=== PATIENT | male | born 1950 | race African-American/Black ===

== ENCOUNTER 2016-12-06 12:16 | Observation (INO) ==
[2016-12-06] MEDS ORDERED: ONDANSETRON 4 MG/2 ML VIAL IV PRN (12:59)
[2016-12-06] MEDS ORDERED: ASPIRIN 325 MG TABLET PO STA (12:59)
[2016-12-06] MEDS ORDERED: NITROGLYCERIN SL 0.4 MG TABLET SL PRN (12:59)
[2016-12-06] MEDS ORDERED: ENOXAPARIN 100 MG/ML SYRINGE SUBCUT STA (12:59)
[2016-12-06] MEDS ORDERED: MORPHINE 2 MG/1 ML SYRINGE IV PRN (12:59)
[2016-12-06] MEDS ORDERED: NITROGLYCERIN 2% OINT 1 INCH/GM PACK TOP STA (12:59)
[2016-12-06] MEDS ORDERED: hydrALAZINE 20 MG/1 ML VIAL IV STA (13:05)
--- NOTE | 2016-12-06 13:06 | Emergency Department Note ---
Jeovanny Maradiaga Hilary, am scribing for, and in the presence of, Tex Clemente MD 13: 03. Chyna Maradiaga James D, MD, personally performed the services described in this documentation, ascribed by Dotty Up in my presence, and it is both accurate and complete . Arrival - Arrival Chief Complaint: Chest Pain Stated Complaint: chest pain,some swelling,shaking,sob,VA sent over ED Nursing Triage Note: pt ambulatory to triage with c/o chest pain/sob. pt states he is having right sided chest pain with some sob onset today around 0400. pt states he was sent here from [place] [facility]. Mode of Arrival: Ambulatory Limitations: No Limitations Source: Patient, RN Notes Reviewed - History of Present Illness HPI Narrative: Pt is a 66 y/o black male presenting to the ED with c/o chest pain which onset around 0600 this morning. He confirms chest pain that radiates to his jaw, SOB, sweating then chills. His chest pain is now resolved and no other complaints or problems stated in the ED. Onset (ago): hour(s) Consistency: now resolved Severity: mild Severity scale (1-10): 1 Quality: sharp Allergies/Adverse Reactions: Allergies Allergy/AdvReac Type Severity Reaction Status Date / Time lisinopril Allergy ANAPHYLAXIS Verified 12/06/16 12:34 Home Medications: Home Medications Medication Instructions Recorded Confirmed Type Aspirin EC Tab 81 mg PO QAM 12/06/16 12/06/16 History Atenolol 25 mg PO QAM 12/06/16 12/06/16 History Meloxicam 7.5 mg PO QAM 12/06/16 12/06/16 History Omeprazole 20 mg PO QAM 12/06/16 12/06/16 History Potassium Chloride Cap/Tab [K Dur] 20 meq PO BEDTIME 12/06/16 12/06/16 History hydroCHLOROthiazide 25 mg PO QAM 12/06/16 12/06/16 History [Hydrochlorothiazide] Review of System - Review of System 12 point system: reviewed and no additional remarkable complaints except as stated - Review of System Constitutional: Present: chills, diaphoresis, fever Cardiovascular: Present: chest pain (radiating to his jaw) Medical,Surgical,& Family Hx - Social History Smoking Status: Never smoker Frequency of Alcohol Use: None Type of Drug Use: None Exam Physical Examination: GENERAL: This is a well-nourished, well-developed in no apparent distress. VITAL SIGNS: Temperature: 99 Pulse: 69 Respiratory: 17 Blood Pressure: 173/ 105 O2Sat: 96 HEENT: Head is normocephalic and atraumatic. Pupils are equally round and reactive to light. Extraocular movement are intact. Oropharynx is benign with moist mucous membranes. NECK: Neck is soft and supple without tenderness. There are no masses. There is no lymphadenopathy. LUNGS: Lungs are clear to auscultation bilaterally. Chest rises symmetrically. There is no chest wall tenderness. CV: Heart is regular rate and rhythm without murmurs, rubs, or gallops. ABDOMEN: Abdomen is soft, non-tender to palpation. There are no abnormal masses palpated. There is no organomegaly. Bowel sounds are present and active. SKIN: Skin is warm and dry. No rash. EXTREMITIES: Patient has full range of motion without tenderness. There is no pedal edema. NEUROLOGIC: Awake, alert, and oriented x4. Cranial nerves II through XII are grossly intact. There are no motorsensory deficits. PSYCHIATRIC: Normal affect. Normal mood. Vital Signs: Vital Signs Temperature 99.0 F 12/06/16 12:28 Pulse Rate 69 12/06/16 12:28 Respiratory Rate 18 12/06/16 12:28 Blood Pressure 173/105 12/06/16 12:28 O2 Sat by Pulse Oximetry 96 12/06/16 12:28 Course - Consultations Consultation #1: Discussed with hospitalist. Patient will be admitted to their service. Time: 13:05 Results - Labs CBC & BMP: 12/06/16 12:59 12/06/16 12:59 Lab Results: I have reviewed the patients labs Labs: Laboratory Tests 12/06/16 12/06/16 12/06/16 12:59 12:59 12:59 WBC 10.3 RBC 5.88 H Hgb 16.5 Hct 48.7 MCV 82.8 L Plt Count 215 Neut % (Auto) 80.6 H Lymph % (Auto) 10.8 L Neut # (Auto) 8.3 H Lymph # (Auto) 1.1 L INR 1.0 PT Patient/Control Mix 10.7 Circ Anticoag PTT 29.9 Sodium 139 Potassium 3.9 Chloride 102 Carbon Dioxide 30 BUN 11 Creatinine 1.20 Glucose 110 H Total Protein 7.1 Albumin/Globulin Ratio 1.0 L Lipase 68.0 L Urine pH Ur Specific [place] Urine Urobilinogen Urine RBC Urine WBC Urine Opiates Screen Ur Barbiturates Screen Ur Phencyclidine Scrn U Amphetamine/Methamph U Benzodiazepines Scrn U Cocaine Metab Screen U Cannabinoids Screen 12/06/16 12/06/16 13:21 13:21 WBC RBC Hgb Hct MCV Plt Count Neut % (Auto) Lymph % (Auto) Neut # (Auto) Lymph # (Auto) INR PT Patient/Control Mix Circ Anticoag PTT Sodium Potassium Chloride Carbon Dioxide BUN Creatinine Glucose Total Protein Albumin/Globulin Ratio Lipase Urine pH 7.0 Ur Specific [place] 1.009 Urine Urobilinogen < 2.0 H Urine RBC 1 Urine WBC <1 Urine Opiates Screen Negative Ur Barbiturates Screen Negative Ur Phencyclidine Scrn Negative U Amphetamine/Methamph Negative U Benzodiazepines Scrn Negative U Cocaine Metab Screen Negative U Cannabinoids Screen Negative Laboratory Tests 12/06/16 12:59 Troponin I < 0.015 - EKG EKG results: interpreted by ERMD - Impressions EKG: Normal sinus rhythm with a rate of 62, nonspecific ST-T wave changes, short QT. Normal axis. - Diagnostic Findings Procedure: Chest x-ray: image reviewed by me (There is an irregular opacity projecting over right midlung measuring up to 2.8cm. Recommend chest CT for further evaluation) Disposition Clinical Impression: Chest pain, Essential hypertension Case discussed with: patient, patient's family Disposition: Disch To Home/Self Care Condition: Stable
[2016-12-06] MEDS ORDERED: ONDANSETRON 4 MG/2 ML VIAL ONE (13:10)
[2016-12-06] MEDS ORDERED: MORPHINE 2 MG/1 ML SYRINGE ONE (13:10)
[2016-12-06 13:12] LABS: Basophils % 0.3 % (0.0-0.8); Eosinophils # 0.1 10*3/uL (0.0-0.87); Eosinophils % 1.2 % (0.00-10.9); Hematocrit 48.7 VOL% (42.0-52.0); Hemoglobin 16.5 GM/DL (14.0-18.0); Immature Granulocytes % 0.2 %; Immature Granulocytes Absolute 0.02 #; Lymphocytes # 1.1 10*3/uL (1.4-4.0); Lymphocytes % 10.8 % (21.2-54.2); Mean Corpuscular HGB Conc 33.9 GM/DL (32-36); Mean Corpuscular Hemoglobin 28 PG (27-34); Mean Corpuscular Volume 82.8 FL (87-102); Mean Platelet Volume 10.6 FL (9.6-12.0); Monocytes # 0.7 10*3/uL (0.11-0.8); Monocytes % 6.9 % (1.7-12.7); Neutrophils # 8.3 10*3/uL (1.4-7.4); Neutrophils % 80.6 % (38.7-73.9); Platelet Count 215 T/CUMM (130-400); Red Blood Count 5.88 MC/CUMM (3.8-5.5); White Blood Count 10.3 T/CUMM (4-12)
[2016-12-06] MEDS ORDERED: hydrALAZINE 20 MG/1 ML VIAL ONE (13:13)
[2016-12-06] MEDS ORDERED: ENOXAPARIN 80 MG/0.8 ML SYRINGE SUBCUT ONE (13:13)
[2016-12-06] MEDS ORDERED: ASPIRIN 325 MG TABLET ONE (13:13)
[2016-12-06] MEDS ORDERED: NITROGLYCERIN 2% OINT 1 INCH/GM PACK TOP ONE (13:13)
[2016-12-06 13:22] LABS: PT Patient Result 10.7 SECS; Partial Thromboplastin Time 29.9 SECS (0-40)
[2016-12-06 13:27] LABS: Apearance,Urine CLEAR (Clear); Bilirubin,Urine Negative (Negative); Blood, Urine Negative (Negative); Glucose,Urine (UA) Negative (Negative); Ketones,Urine Negative (Negative); Mucus,Urine Occasional /LPF (Occasional); Nitrite,Urine Negative (Negative); Protein,Urine Negative; RBC,Urine 1 /HPF (0-4); Urine Color Straw (Yellow); Urine Specific Gravity 1.009 (1.001-1.035); Urine Urobilinogen < 2.0 EU/DL (0.2-1.0); WBC,Urine <1 /HPF (0-6)
[2016-12-06 13:32] LABS: Albumin 3.6 G/DL (3.4-5.0); Bilirubin,Total 0.6 MG/DL (0.2-1.0); Calcium 9.1 MG/DL (8.5-10.1); Osmolality,Calculated 276.5 MOS/KG (273-304); Potassium 3.9 MMOL/L (3.5-5.1); Total Protein 7.1 G/DL (6.4-8.3)
[2016-12-06 13:35] LABS: Barbiturates Screen,Urine Negative (Negative); Benzodiazepines Screen,Urine Negative (Negative); Cannabinoid Screen,Urine Negative (Negative); Opiate Screen,Urine Negative (Negative); Phencyclidine Screen,Urine Negative (Negative)
--- NOTE | 2016-12-06 14:22 | XRay Report ---
XR chest 2V Indication: Chest pain Comparison: Chest x-ray dated November 14, 2016 Technique: Frontal and lateral views of the chest. Findings: The cardiomediastinal silhouette is stable in configuration. Chronic change of the lungs. There is an irregular opacity projecting over right midlung measuring up to 2.[address] for further evaluation. Visualized osseous and surrounding soft tissue structures appear grossly unchanged. IMPRESSION: There is an irregular opacity projecting over right midlung measuring up to 2.[address] for further evaluation. Critical Results: Initiated by Palak at time of dictation. PROCEDURE INTERPRETED AT [facility] [place] DEPARTMENT OF RADIOLOGY Final Report Signed by: Dr Zhou Granda
--- NOTE | 2016-12-06 15:17 | Hospitalist History & Physical ---
<Samuel Steven - Last Filed: 12/06/16 15:18> Assessment and Plan (1) Chest pain Status: Acute Assessment and plan: Admit to telemetry. Cardiac monitoring. Serial enzymes and ekgs. Repeat ekg in am. Nitro prn for chest pain. Consult cardiology to follow. CXR results showed an irregular opacity projecting over right midlung measuring up to 2.[address] pending. Current Visit: Yes (2) Essential hypertension Status: Acute Assessment and plan: Resume home medications. Current Visit: Yes (3) Gout Status: Chronic Assessment and plan: Pt. currently on meloxicam. Current Visit: Yes History of Present Illness Chief complaint: chest pain History of present illness: Mr. Funez is a 66 year old black male with a history of hypertension, asthma, and gout that presents to the ED today with complaints of chest pain and shortness of breath. Pt. has asthma and states he has been wheezing on and off since Sunday. Pt. states that today it has worsened and he began to have pain. Pt. states that the pain started in his face (jaw area) and then he began to have a headache which then evolved into chest tightness. Pt's is present at the bedside and states that jaw pain is not new and has been going on intermittently for the last 2 weeks. Pt. states that the chest pain was on the right side of his chest and was sharp. Pt. took a baby asa, atenolol and meloxicam with no relief. Pt. also reports becoming nauseous with no vomiting but dry heaving. Pt. denies any right or left sided weakness, vision loss, confusion, abdominal pain or any other associating symptoms. On evaluation in the ED, pt's chest pain has now resolved. He denies any other complaints at this time. Pt denies any family history of heart disease. Pt. is a former smoker but describes himself as fairly active. Pt. will be admitted to the hospitalist service for observation. Home Medications Medication Instructions Recorded Confirmed Type Aspirin EC Tab 81 mg PO QAM 12/06/16 12/06/16 History Atenolol 25 mg PO QAM 12/06/16 12/06/16 History Meloxicam 7.5 mg PO QAM 12/06/16 12/06/16 History Omeprazole 20 mg PO QAM 12/06/16 12/06/16 History Potassium Chloride Cap/Tab [K Dur] 20 meq PO BEDTIME 12/06/16 12/06/16 History hydroCHLOROthiazide 25 mg PO QAM 12/06/16 12/06/16 History [Hydrochlorothiazide] Allergies Allergy/AdvReac Type Severity Reaction Status Date / Time lisinopril Allergy ANAPHYLAXIS Verified 12/06/16 12:34 Medical,Surgical,& Family Hx - Family History Family History: Reports;: Family Cancer (father) - Social History Smoking Status: Never smoker Frequency of Alcohol Use: None Type of Drug Use: None Marital Status: Lives With:: Spouse Functional capacity: independent ambulation - Constitutional Constitutional: Absent: chills, fever(s) - EENT Eyes: Present: loss of vision, requires corrective lense. Absent: blurry vision Ears: Present: decreased hearing. Absent: ear discharge Nose, mouth and throat: Present: headache(s). Absent: dysphagia, hoarseness - Cardiovascular Cardiovascular: Present: chest pain at rest, chest pain with activity, dyspnea on exertion, radiating jaw, neck or arm pain (facial radiation). Absent: edema - Respiratory Respiratory: Present: wheezing. Absent: cough - Gastrointestinal Gastrointestinal: Present: nausea. Absent: abdominal pain, vomiting (only dry heaving) - Genitourinary Genitourinary: Absent: difficulty urinating, urinary frequency - Musculoskeletal Musculoskeletal: Absent: back pain - Neurological Neurological: Present: headache(s). Absent: confusion, dizziness - Psychiatric Psychiatric: Absent: anxiety, depression Exam - Constitutional Vitals: Period Temp Pulse Resp BP Sys/Hopkins Pulse Ox Last 24 Hr 99.0 F-99.0 F 66-69 17-18 173-173/105-105 96 General appearance: normal weight, no acute distress - Head Head exam: Present: normal inspection, normocephalic - Eye Eye exam: Present: EOMI. Absent: periorbital swelling Pupils: Present: QUINTIN. Absent: fixed - ENT ENT exam: Present: normal exam - Neck Neck exam: Absent: thyromegaly - Respiratory Respiratory exam: Present: wheezes (slight). Absent: clear to auscultation bilaterally - Cardiovascular Cardiovascular exam: Present: regular rate and rhythm - GI/Abdominal GI/Abdominal exam: Present: normal bowel sounds, soft. Absent: tenderness - Extremities Exam Extremities exam: Present: normal capillary refill, full ROM. Absent: edema - Neurological Exam Neurological exam: Present: alert, oriented X3, normal gait - Psychiatric Psychiatric exam: Present: normal affect, normal mood - Skin Skin exam: Present: normal color, warm, dry Results - Labs CBC & BMP: 12/06/16 12:59 12/06/16 12:59 Lab Results: I have reviewed the past 24 hour labs <Gabriela Hi - Last Filed: 12/06/16 17:50> History of Present Illness Chief complaint: chest pain x 1 day History of present illness: PCP is Dr. Stu Kirk at the [facility] Mr. Funez is a 66 year old male with a history of GERD, hypertension, dyslipidemia and asthma who presented to the hospital with 2 days of nasal congestion and cough and developed chest pain today. Patient reports 2 days ago he has. Some hay out over his yard and soon thereafter started having nasal congestion and described a tightness in his chest rated 5 out of 10 with a pressure sensation over the right side of his chest that started after a coughing fit. He denies any radiation. He denies any jaw pain. He reports that he has some pressure next to his nose and his right upper cheek and states that the chest tightness was associated with shortness of breath and nausea. He denies any runny nose. He denies any abdominal pain. His last bowel movement was yesterday. He denies any melena or bright red blood per rectum. He described his symptoms to his and she was concerned so she decided to bring him to the emergency department for further evaluation and treatment. A 10 point review of systems was reviewed with the patient and was otherwise unremarkable. Past medical history: As noted above plus osteoarthritis Past surgical history: Right total knee replacement, left hernia operation Meds: Reviewed Allergies: RYAN inhibitors cause anaphylaxis Family history: Father had lung cancer; mother had a stroke Social history: Patient smoked a pack per week for 35 years remotely. He denies any alcohol or illicit drug use. He is . 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 Extraocular muscles are intact. Sclerae clear. Conjunctive are pink. Nares are patent with no discharge or epistaxis no but he has an obvious deformity to his right paranasal space and it is tender to palpation with tenderness over the right maxillary sinus. Oropharynx is clear. No lesions or thrush noted. Neck is supple. No lymphadenopathy or thyromegaly appreciated. No JVD. Cardiovascular: Regular rate and rhythm. Normal S1-S2. No obvious murmurs rubs or gallops Lungs: Clear to auscultation bilaterally with good aeration nonlabored breathing noted Abdomen: Soft nontender nondistended positive bowel sounds no organomegaly or masses appreciated Extremity exam: Patient is warm and well-perfused. No clubbing cyanosis or edema Labs and investigative studies were reviewed Assessment and plan: #1 Atypical chest pain likely due to acute bronchitis though patient does have a risk factors for ACS -start bronchodilators as needed. Repeat a FEDE panel and monitor on telemetry. Check TSH. cardiology has been consulted. Await recommendations #2 Suspect acute sinusitis -start decongestants and agree with Augmentin. Will hold Zyrtec for now #3 GERD -Continue PPI #4 essential hypertension -Resume home meds #5 Dyslipidemia -Continue statin #6 Remote history of tobacco use -Recommend continued smoking cessation Discussed with nurse and patient. All questions answered. I suspect if cardiac markers are negative will likely be able to discharge in the a.m. Exam - Constitutional Vitals: Period Temp Pulse Resp BP Sys/Hopkins Pulse Ox Last 24 Hr 98.4 F-99.0 F 55-71 14-21 127-173/76-122 96-100 Results - Labs CBC & BMP: 12/06/16 12:59 12/06/16 12:59
--- NOTE | 2016-12-06 15:21 | CT Report ---
CT chest w con Indication: Mass. CT CHEST WITH CONTRAST DLP: 254 mGy*cm. One or more of the following dose reduction techniques was used: Automated exposure control, adjustment of the mA and/or kV according the patient size, or use of iterative reconstruction techniques. Comparison: None Technique: Axial CT images of the chest were obtained after the IV administration of Omnipaque 350, 100 cc. Findings: Shotty subcentimeter mediastinal lymph nodes are present along the paratracheal region. None are pathologically enlarged. No hilar or axillary lymphadenopathy. Heart size is normal. Aortic arch is slightly elongated but no significant atheromatous disease is shown. Main pulmonary artery is normal in size. Airways widely patent. The dependent lungs, there is some atelectasis and/or scarring present. However, no pulmonary mass or nodularity is identified. Pleural spaces are clear. 2 calcified right hilar nodes are present, neither enlarged. No destructive bone lesions. Limited views of the upper abdomen appear grossly unremarkable. Impression: 1. No pulmonary mass identified. Basilar dependent atelectasis is present. 2. No pathologic lymphadenopathy. Prior granulomatous disease. PROCEDURE INTERPRETED AT [facility] DEPARTMENT OF RADIOLOGY Final Report Signed by: Les More M.D.
--- NOTE | 2016-12-06 17:14 | Cardiology Consult Note ---
Assessment and Plan - Time spent with patient Time spent with patient: Less than 30 minutes History of Present Illness - Data of Consult Patient: new to practice Consult date: 12/06/16 Requesting Physician: Gabriela Hi Primary care physician: Josie Samano - Consult Narrative Reason for consult: Chest pain History of present illness: Mr. 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 The patient states about 1 month ago he had similar symptoms where he was having significant amount of cough and then was seen by Dr. Josie Samano at the [place] [facility] and given a Zithromax and he got better for just a few days. He now presents with same complaints but has chest pain that hurts anytime he coughs. The patient has a history of asthma as well. He states that his pain occurs as sharp anytime he takes a deep breath and coughs. If he does not cough he does not have pain he has not had any exertional chest pain. He is also experienced some pain in the right maxillary area. He has had some postnasal drip he denies fevers chills or significant sputum production. Patient had an EKG in the emergency room and first set of cardiac biomarkers are negative his EKG shows no acute changes he is admitted to the hospital service and I have been asked to see. He has no identifiable risk factors for coronary artery disease no family history he has had some hypertension and hyperlipidemia in the past he has not been a smoker he does not have diabetes. Due to inadequacies of the electronic health record I am unable to complete my note because someone else is in the computer. Therefore my assessment and plan are as below: 1. Noncardiac chest pain this appears to be musculoskeletal in etiology related to coughing from asthmatic bronchitis 2. Asthmatic bronchitis 3. Right maxillary sinus discomfort possible sinusitis 4. Hypertension controlled 5. Dyslipidemia Recommendations check lipids and treat to goal continue aspirin. Unless biomarkers or EKG change no further cardiovascular workup at this time. CC: Gabriela Hi MD - Home Medications and Allergies Home Medications: Home Medications Medication Instructions Recorded Confirmed Type Aspirin EC Tab 81 mg PO QAM 12/06/16 12/06/16 History Atenolol 25 mg PO QAM 12/06/16 12/06/16 History Meloxicam 7.5 mg PO QAM 12/06/16 12/06/16 History Omeprazole 20 mg PO QAM 12/06/16 12/06/16 History Potassium Chloride Cap/Tab [K Dur] 20 meq PO BEDTIME 12/06/16 12/06/16 History hydroCHLOROthiazide 25 mg PO QAM 12/06/16 12/06/16 History [Hydrochlorothiazide] Allergies/Adverse Reactions: Allergies Allergy/AdvReac Type Severity Reaction Status Date / Time lisinopril Allergy ANAPHYLAXIS Verified 12/06/16 12:34 - Constitutional Constitutional: Present: fatigue, headache(s). Absent: anorexia, chills, fever( s) - EENT Eyes: Absent: blurry vision, diplopia Ears: Absent: decreased hearing, ear discharge Nose, mouth and throat: Present: headache(s), hoarseness, sinus pressure (Or pain in the right maxillary region). Absent: epistaxis - Cardiovascular Cardiovascular: Present: chest pain at rest (Chest pain is related directly to coughing not related to exertion or orthopnea.), dyspnea. Absent: claudication , diaphoresis, edema, radiating jaw, neck or arm pain, lightheadedness - Respiratory Respiratory: Present: cough, dyspnea on exertion. Absent: wheezing, snoring, pain on inspiration, change in phlegm color - Gastrointestinal Gastrointestinal: Absent: abdominal pain, bloating, change in bowel habits, dyspepsia, dysphagia, fecal incontinence, heartburn, melena - Genitourinary Genitourinary: Absent: difficulty urinating, hematuria - Musculoskeletal Musculoskeletal: Absent: arthralgias - Neurological Neurological: Absent: abnormal gait, abnormal speech, disequilibrium - Psychiatric Psychiatric: Absent: anxiety, auditory hallucinations, depression - Endocrine Endocrine: Absent: cold intolerance, heat intolerance - Hematologic/Lymphatic Hematologic/Lymphatic: Absent: easy bleeding, easy bruising Medical,Surgical,& Family Hx - Medical History Cardio: History of: Hypertension Endocrine: History of: Dyslipidemia Gastrointestinal: History of: GERD - Surgical History Additional Surgical History: Minor right lower extremity surgery unclear procedure - Family History Family History: Reports;: Family Cancer (father) - Social History Smoking Status: Never smoker Frequency of Alcohol Use: None Type of Drug Use: None Marital Status: Lives With:: Spouse Functional capacity: independent ambulation Physical Examination Vital Signs Temp Pulse Resp BP Pulse Ox 99.0 F 69 17 173/105 96 12/06/16 12:28 12/06/16 12:28 12/06/16 12:28 12/06/16 12:28 12/06/16 12:28 General: Present: Appears Well ([place] body weight) HEENT: Present: PERRL, Normocephaly, Sinus Tenderness. Absent: Jaundice, Pallor Neck: Present: Supple Neck, Midline Trachea, No JVD/HJR Cardiac: Present: Reg Rate and Rhythm, S1/S2, No Murmur. Absent: S3, S4 Lungs: Present: Clear Ascult./Percussion Neuro: Present: Cranial Nerve 2-12 Intact Abdomen: Present: Soft, Active Bowel Sounds Skin: Present: Clear Musculoskeletal: Absent: Erythematous Joints, Decreased Range of Motion, Fluid Collection, Pain in Joint Gait: Present: Normal Gait Extremities: Present: Normal Gait. Absent: Edema Result/EKG - Labs CBC & BMP: 12/06/16 12:59 12/06/16 12:59 Labs: Laboratory Results - last 24 hr 12/06/16 12/06/16 12/06/16 12:59 12:59 12:59 WBC RBC Hgb Hct MCV MCH MCHC RDW Plt Count MPV Neut % (Auto) Lymph % (Auto) [place] % (Auto) Eos % (Auto) Baso % (Auto) Neut # (Auto) Lymph # (Auto) [place] # (Auto) Eos # (Auto) Baso # (Auto) Immature Gran % Nucleated RBC % Immature Gran # Nucleated RBCs # INR 1.0 PT Patient/Control Mix 10.7 Circ Anticoag PTT 29.9 Sodium 139 Potassium 3.9 Chloride 102 Carbon Dioxide 30 Anion Gap 10.9 BUN 11 Creatinine 1.20 GFR Calculation 79 BUN/Creatinine Ratio 9.00 Glucose 110 H Calculated Osmolality 276.5 Calcium 9.1 Total Bilirubin 0.60 AST 16 ALT 26 Alkaline Phosphatase 67 Troponin I < 0.015 Total Protein 7.1 Albumin 3.6 Globulin 3.5 Albumin/Globulin Ratio 1.0 L Lipase 68.0 L Urine Color Urine Appearance Urine pH Ur Specific [place] Urine Protein Urine Glucose (UA) Urine Ketones Urine Blood Urine Nitrate Urine Bilirubin Urine Urobilinogen Urine Leukocytes Urine RBC Urine WBC Urine Mucus Ur Culture Indicated? Urine Opiates Screen Ur Barbiturates Screen Ur Phencyclidine Scrn U Amphetamine/Methamph U Benzodiazepines Scrn U Cocaine Metab Screen U Cannabinoids Screen 0612/06/16 12/06/16 12:59 13:21 13:21 WBC 10.3 RBC 5.88 H Hgb 16.5 Hct 48.7 MCV 82.8 L MCH 28 MCHC 33.9 RDW 14.0 Plt Count 215 MPV 10.6 Neut % (Auto) 80.6 H Lymph % (Auto) 10.8 L [place] % (Auto) 6.9 Eos % (Auto) 1.2 Baso % (Auto) 0.3 Neut # (Auto) 8.3 H Lymph # (Auto) 1.1 L [place] # (Auto) 0.7 Eos # (Auto) 0.1 Baso # (Auto) 0.0 Immature Gran % 0.2 Nucleated RBC % 0.0 Immature Gran # 0.02 Nucleated RBCs # 0.00 INR PT Patient/Control Mix Circ Anticoag PTT Sodium Potassium Chloride Carbon Dioxide Anion Gap BUN Creatinine GFR Calculation BUN/Creatinine Ratio Glucose Calculated Osmolality Calcium Total Bilirubin AST ALT Alkaline Phosphatase Troponin I Total Protein Albumin Globulin Albumin/Globulin Ratio Lipase Urine Color Straw Urine Appearance Clear Urine pH 7.0 Ur Specific [place] 1.009 Urine Protein Negative Urine Glucose (UA) Negative Urine Ketones Negative Urine Blood Negative Urine Nitrate Negative Urine Bilirubin Negative Urine Urobilinogen < 2.0 H Urine Leukocytes Negative Urine RBC 1 Urine WBC <1 Urine Mucus Occasional Ur Culture Indicated? Not indicated Urine Opiates Screen Negative Ur Barbiturates Screen Negative Ur Phencyclidine Scrn Negative U Amphetamine/Methamph Negative U Benzodiazepines Scrn Negative U Cocaine Metab Screen Negative U Cannabinoids Screen Negative - EKG EKG results: interpreted by me, WNL
--- NOTE | 2016-12-06 17:17 | Cardiology Consult Note ---
<Angelina Mayfield Randy - Last Filed: 12/06/16 16:56> Assessment and Plan - Time spent with patient Time spent with patient: Greater than 30 minutes (Due to assessment, plan, and documentation.) (1) Chest pain Status: Acute Current Visit: Yes (2) Sinusitis Status: Acute Current Visit: Yes (3) Essential hypertension Status: Acute Current Visit: Yes (4) Hyperlipidemia Status: Chronic Current Visit: Yes (5) Gout Status: Chronic Current Visit: Yes (6) GERD (gastroesophageal reflux disease) Status: Chronic Current Visit: Yes History of Present Illness - Data of Consult Patient: new to practice Consult date: 12/06/16 Requesting Physician: Samuel Steven - Consult Narrative Reason for consult: chest pain 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 Funez is a 66 year old male with history of hypertension , asthma, hyperlipidemia, gout, GERD. Risk factors are significant for: Age, hypertension, hyperlipidemia, sedentary lifestyle, former tobacco use. He reports his former smoker having quit over 35 years ago. He does not require the use of a cane or walker but does have limited mobility due to prior right knee surgery. 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 He has no family history of CAD. Mr. Funez presented to the emergency room today with right-sided facial pain, jaw pain, and chest discomfort. Mr. Funez reports last night the right side of his face started hurting and he developed a headache. This morning, he noted that he had the same symptoms with the addition of some chest tightness, shortness of breath, chills, and nausea. He also reports having a dry cough. He tells me that 2-3 weeks ago he had the same symptoms of facial pain and headache and went to [facility] and they gave him a Z-Ronnie for sinusitis. At that time, he improved but now he is having the same symptoms with the addition of chest tightness. He reports his chest discomfort is fairly mild and is nonreproducible. He reports that he does not have chest pain or shortness of breath with exertion. He also reports he feels like "his sinuses are draining. " Patient's initial troponin is negative. We will continue to cycle cardiac biomarkers and EKGs and follow trend. Initial EKG shows sinus rhythm with suggestion of ST-T abnormality although it is difficult to tell due to artifact. Assessment/plan: 1. Chest pain -patient describes some typical and mostly atypical features of chest pain. Will continue to cycle cardiac biomarkers and EKGs to rule out MA. I suspect this is more related to his coughing from asthmatic bronchitis. 2. Possible sinusitis -will obtain CT patient sinuses. We will go ahead and start him on oral antibiotics, Flonase, and Zyrtec. Temperature max is only been 99. White blood cell count is normal at 10.3 but he does have a little bit of a left shift. We will continue to monitor CBC and response to therapy. 3. Hypertension -blood pressure has been moderately elevated since admission although he has been in considerable pain with the right side of his face hurting. It is better controlled now. We will continue to monitor and adjust medications accordingly. 4. Hyperlipidemia -he is not currently taking medication for this will recheck lipid panel in the morning. 5. Gout -continue home medications. Denies any recent flareups of gout. 6. GERD -continue PPI during hospitalization. CC: Gabriela Hi MD - Home Medications and Allergies Home Medications: Home Medications Medication Instructions Recorded Confirmed Type Acetaminophen Tab [Tylenol Tab] 650 mg PO Q4H PRN tablet 12/06/16 Rx Amoxicillin/Clav Tab [Augmentin 875 mg PO BID tablet 12/06/16 Rx Tab] Aspirin EC Tab 81 mg PO QAM 12/06/16 12/06/16 History Atenolol 25 mg PO QAM 12/06/16 12/06/16 History Fluticasone 50 Mcg Nasal [place] 2 spray BOTH NARES DAILY spray 12/06/16 Rx [Flonase Nasal [place]] Meloxicam 7.5 mg PO QAM 12/06/16 12/06/16 History Nitroglycerin Sl Tab [Nitrostat] 0.4 mg SL Q5M PRN tablet 12/06/16 Rx Omeprazole 20 mg PO QAM 12/06/16 12/06/16 History Potassium Chloride Cap/Tab [K Dur] 20 meq PO BEDTIME 12/06/16 12/06/16 History Sodium Chloride 0.65% Nasal Sp 2 spray BOTH NARES QID bottle 12/06/16 Rx [Asotin Nasal [place]] hydroCHLOROthiazide 25 mg PO QAM 12/06/16 12/06/16 History [Hydrochlorothiazide] Allergies/Adverse Reactions: Allergies Allergy/AdvReac Type Severity Reaction Status Date / Time lisinopril Allergy ANAPHYLAXIS Verified 12/06/16 12:34 Review of systems: - Constitutional: Present: chills, headache(s), As per HPI. Absent: anorexia, daytime sleepiness, excessive sweating, fever(s), frequent falls, increased appetite, lethargy, malaise, night sweats, stops breathing during sleep, weakness, weight gain, weight loss, fatigue. - EENT Eyes: Present: As per HPI. Absent: blurry vision, diplopia, loss of vision Ears: Present: As per HPI. Absent: decreased hearing, ear discharge, ear pain Nose, mouth and throat: Present: sinus pressure, headache(s), As per HPI. Absent : dysphagia, epistaxis, hoarseness, lip swelling, nasal congestion, neck mass, neck pain, sore throat, throat swelling, tongue swelling, vertigo - Cardiovascular: Present: chest pain at rest, dyspnea, radiating jaw, neck or arm pain, as per HPI. Absent: chest pain with activity, dyspnea on exertion, edema, claudication, diaphoresis, lightheadedness, orthopnea, palpitations, PND - Respiratory: Present:dyspnea, cough, wheezing, as per HPI. Absent: dyspnea on exertion, hemoptysis, snoring, pain on inspiration - Gastrointestinal: Present: As per HPI. Absent: abdominal pain, bloating, change in bowel habits, constipation, diarrhea, heartburn, hematemesis, hematochezia, loose stools, melena, nausea, vomiting - Genitourinary: Present: As per HPI. Absent: difficulty urinating, dysuria, flank pain, hematuria, nocturia, urinary frequency, urinary incontinence - Musculoskeletal: Present: As per HPI. Absent: arthralgias, back pain, joint swelling, limited range of motion, muscle cramps, muscle weakness, myalgias - Neurological: Present: As per HPI. Absent: abnormal gait, abnormal speech, behavioral changes, confusion, convulsions, disequilibrium, dizziness, focal weakness, frequent falls, headache(s), memory loss, numbness, paresthesias, radicular pain, syncope, tremor(s) - Psychiatric: Present: As per HPI. Absent: anxiety, confusion, depression, panic attacks - Endocrine: Present: As per HPI. Absent: cold intolerance, fatigue, heat intolerance, polydipsia, polyphagia - Hematologic/Lymphatic: Present: As per HPI. Absent: easy bleeding, easy bruising, lymphadenopathy Medical,Surgical,& Family Hx - Medical History Cardio: History of: Hypertension No history of: CAD Endocrine: History of: Dyslipidemia Gastrointestinal: History of: GERD - Family History Family History: Reports;: Family Cancer (father) - Social History Smoking Status: Never smoker Frequency of Alcohol Use: None Type of Drug Use: None Physical Examination Vital Signs Temp Pulse Resp BP Pulse Ox 99.0 F 69 17 173/105 96 12/06/16 12:28 12/06/16 12:28 12/06/16 12:28 12/06/16 12:28 12/06/16 12:28 Other: General appearance: Pleasant and cooperative. Normal weight, no acute distress. - Head Head exam: Present: normal inspection, normocephalic, atraumatic, right maxillary pain and tenderness to palpation. Absent: hematoma, laceration - Eye Eye exam: Present: EOMI. Absent: conjunctival injection, nystagmus, periorbital swelling, scleral icterus, laceration to eyelids Pupils: Present: PERRL. Absent: constricted, dilated, fixed, irregular, unequal - ENT ENT exam: Present: normal exam, normal external ear exam - Neck Neck exam: Present: normal inspection. Absent: lymphadenopathy, meningismus, tenderness, thyromegaly - Respiratory Respiratory exam: Present: Few rales posteriorly, otherwise clear to auscultation bilaterally. Absent: accessory muscle use, chest wall tenderness - Cardiovascular Cardiovascular exam: Present: regular rate and rhythm. Absent: carotid bruit, gallop, JVD, rubs, murmur - GI/Abdominal GI/Abdominal exam: Present: normal bowel sounds, soft. Absent: distended, firm , guarding, hernia, mass, tenderness, rebound. - Extremities Exam Extremities exam: Present: normal inspection, normal capillary refill. Upper extremity pulses 2+. Lower extremity pulses 2+. Absent: calf tenderness, edema -Musculoskeletal Exam Musculoskeletal: Present: No Fluid Collection, No Pain, Normal Range of Motion - Back Exam Back exam: Present: normal inspection. Absent: muscle spasm, vertebral tenderness - Neurological Exam Neurological exam: Present: alert, oriented X3, grossly intact without resting or essential tremor - Psychiatric Psychiatric exam: Present: normal affect, normal mood - Skin Skin exam: Present: normal color, warm, dry, intact. Absent: cyanosis, diaphoretic, rash, urticaria Result/EKG - Labs CBC & BMP: 12/06/16 12:59 12/06/16 12:59 Lab Results: I have reviewed the past 24 hour labs Labs: Laboratory Results - last 24 hr 12/06/16 12/06/16 12/06/16 12:59 12:59 12:59 WBC RBC Hgb Hct MCV MCH MCHC RDW Plt Count MPV Neut % (Auto) Lymph % (Auto) [place] % (Auto) Eos % (Auto) Baso % (Auto) Neut # (Auto) Lymph # (Auto) [place] # (Auto) Eos # (Auto) Baso # (Auto) Immature Gran % Nucleated RBC % Immature Gran # Nucleated RBCs # INR 1.0 PT Patient/Control Mix 10.7 Circ Anticoag PTT 29.9 Sodium 139 Potassium 3.9 Chloride 102 Carbon Dioxide 30 Anion Gap 10.9 BUN 11 Creatinine 1.20 GFR Calculation 79 BUN/Creatinine Ratio 9.00 Glucose 110 H Calculated Osmolality 276.5 Calcium 9.1 Total Bilirubin 0.60 AST 16 ALT 26 Alkaline Phosphatase 67 Troponin I < 0.015 Total Protein 7.1 Albumin 3.6 Globulin 3.5 Albumin/Globulin Ratio 1.0 L Lipase 68.0 L Urine Color Urine Appearance Urine pH Ur Specific [place] Urine Protein Urine Glucose (UA) Urine Ketones Urine Blood Urine Nitrate Urine Bilirubin Urine Urobilinogen Urine Leukocytes Urine RBC Urine WBC Urine Mucus Ur Culture Indicated? Urine Opiates Screen Ur Barbiturates Screen Ur Phencyclidine Scrn U Amphetamine/Methamph U Benzodiazepines Scrn U Cocaine Metab Screen U Cannabinoids Screen 12/06/16 12/06/16 12/06/16 12:59 13:21 13:21 WBC 10.3 RBC 5.88 H Hgb 16.5 Hct 48.7 MCV 82.8 L MCH 28 MCHC 33.9 RDW 14.0 Plt Count 215 MPV 10.6 Neut % (Auto) 80.6 H Lymph % (Auto) 10.8 L [place] % (Auto) 6.9 Eos % (Auto) 1.2 Baso % (Auto) 0.3 Neut # (Auto) 8.3 H Lymph # (Auto) 1.1 L [place] # (Auto) 0.7 Eos # (Auto) 0.1 Baso # (Auto) 0.0 Immature Gran % 0.2 Nucleated RBC % 0.0 Immature Gran # 0.02 Nucleated RBCs # 0.00 INR PT Patient/Control Mix Circ Anticoag PTT Sodium Potassium Chloride Carbon Dioxide Anion Gap BUN Creatinine GFR Calculation BUN/Creatinine Ratio Glucose Calculated Osmolality Calcium Total Bilirubin AST ALT Alkaline Phosphatase Troponin I Total Protein Albumin Globulin Albumin/Globulin Ratio Lipase Urine Color Straw Urine Appearance Clear Urine pH 7.0 Ur Specific [place] 1.009 Urine Protein Negative Urine Glucose (UA) Negative Urine Ketones Negative Urine Blood Negative Urine Nitrate Negative Urine Bilirubin Negative Urine Urobilinogen < 2.0 H Urine Leukocytes Negative Urine RBC 1 Urine WBC <1 Urine Mucus Occasional Ur Culture Indicated? Not indicated Urine Opiates Screen Negative Ur Barbiturates Screen Negative Ur Phencyclidine Scrn Negative U Amphetamine/Methamph Negative U Benzodiazepines Scrn Negative U Cocaine Metab Screen Negative U Cannabinoids Screen Negative - EKG EKG results: interpreted by me, sinus rhythm <Meryl Tristan - Last Filed: 12/07/16 06:17> History of Present Illness - Consult Narrative History of present illness: Mr. Funez is a 66 year old male please see my consult note that corresponds roughly with the date and time that Anabella Angelina Mayfield NP at this note in. They are duplicates. CC: Gabriela Hi MD Physical Examination Vital Signs Temp Pulse Resp BP Pulse Ox 99.0 F 69 17 173/105 96 12/06/16 12:28 12/06/16 12:28 12/06/16 12:28 12/06/16 12:28 12/06/16 12:28 Result/EKG - Labs CBC & BMP: 12/07/16 04:02 12/07/16 04:02 Labs: Laboratory Results - last 24 hr 12/06/16 12/06/16 12/06/16 12:59 12:59 12:59 WBC RBC Hgb Hct MCV MCH MCHC RDW Plt Count MPV Neut % (Auto) Lymph % (Auto) [place] % (Auto) Eos % (Auto) Baso % (Auto) Neut # (Auto) Lymph # (Auto) [place] # (Auto) Eos # (Auto) Baso # (Auto) Immature Gran % Nucleated RBC % Immature Gran # Nucleated RBCs # INR 1.0 PT Patient/Control Mix 10.7 Circ Anticoag PTT 29.9 Sodium 139 Potassium 3.9 Chloride 102 Carbon Dioxide 30 Anion Gap 10.9 BUN 11 Creatinine 1.20 GFR Calculation 79 BUN/Creatinine Ratio 9.00 Glucose 110 H Hemoglobin A1c Calculated Osmolality 276.5 Calcium 9.1 Total Bilirubin 0.60 AST 16 ALT 26 Alkaline Phosphatase 67 Total Creatine Kinase CK-MB (CK-2) Troponin I < 0.015 Total Protein 7.1 Albumin 3.6 Globulin 3.5 Albumin/Globulin Ratio 1.0 L Triglycerides Cholesterol LDL Cholesterol VLDL Cholesterol HDL Cholesterol Heart Disease Risk Ratio Lipase 68.0 L Free T4 TSH 3rd Generation Urine Color Urine Appearance Urine pH Ur Specific [place] Urine Protein Urine Glucose (UA) Urine Ketones Urine Blood Urine Nitrate Urine Bilirubin Urine Urobilinogen Urine Leukocytes Urine RBC Urine WBC Urine Mucus Ur Culture Indicated? Urine Opiates Screen Ur Barbiturates Screen Ur Phencyclidine Scrn U Amphetamine/Methamph U Benzodiazepines Scrn U Cocaine Metab Screen U Cannabinoids Screen 12/06/16 12/06/16 12/06/16 12:59 13:21 13:21 WBC 10.3 RBC 5.88 H Hgb 16.5 Hct 48.7 MCV 82.8 L MCH 28 MCHC 33.9 RDW 14.0 Plt Count 215 MPV 10.6 Neut % (Auto) 80.6 H Lymph % (Auto) 10.8 L [place] % (Auto) 6.9 Eos % (Auto) 1.2 Baso % (Auto) 0.3 Neut # (Auto) 8.3 H Lymph # (Auto) 1.1 L [place] # (Auto) 0.7 Eos # (Auto) 0.1 Baso # (Auto) 0.0 Immature Gran % 0.2 Nucleated RBC % 0.0 Immature Gran # 0.02 Nucleated RBCs # 0.00 INR PT Patient/Control Mix Circ Anticoag PTT Sodium Potassium Chloride Carbon Dioxide Anion Gap BUN Creatinine GFR Calculation BUN/Creatinine Ratio Glucose Hemoglobin A1c Calculated Osmolality Calcium Total Bilirubin AST ALT Alkaline Phosphatase Total Creatine Kinase CK-MB (CK-2) Troponin I Total Protein Albumin Globulin Albumin/Globulin Ratio Triglycerides Cholesterol LDL Cholesterol VLDL Cholesterol HDL Cholesterol Heart Disease Risk Ratio Lipase Free T4 TSH 3rd Generation Urine Color Straw Urine Appearance Clear Urine pH 7.0 Ur Specific [place] 1.009 Urine Protein Negative Urine Glucose (UA) Negative Urine Ketones Negative Urine Blood Negative Urine Nitrate Negative Urine Bilirubin Negative Urine Urobilinogen < 2.0 H Urine Leukocytes Negative Urine RBC 1 Urine WBC <1 Urine Mucus Occasional Ur Culture Indicated? Not indicated Urine Opiates Screen Negative Ur Barbiturates Screen Negative Ur Phencyclidine Scrn Negative U Amphetamine/Methamph Negative U Benzodiazepines Scrn Negative U Cocaine Metab Screen Negative U Cannabinoids Screen Negative 12/06/16 12/06/16 12/07/16 16:44 22:06 04:02 WBC RBC Hgb Hct MCV MCH MCHC RDW Plt Count MPV Neut % (Auto) Lymph % (Auto) [place] % (Auto) Eos % (Auto) Baso % (Auto) Neut # (Auto) Lymph # (Auto) [place] # (Auto) Eos # (Auto) Baso # (Auto) Immature Gran % Nucleated RBC % Immature Gran # Nucleated RBCs # INR PT Patient/Control Mix Circ Anticoag PTT Sodium Potassium Chloride Carbon Dioxide Anion Gap BUN Creatinine GFR Calculation BUN/Creatinine Ratio Glucose Hemoglobin A1c Calculated Osmolality Calcium Total Bilirubin AST ALT Alkaline Phosphatase Total Creatine Kinase 72 49 D 43 CK-MB (CK-2) 1.4 < 1.0 < 1.0 Troponin I < 0.015 < 0.015 < 0.015 Total Protein Albumin Globulin Albumin/Globulin Ratio Triglycerides Cholesterol LDL Cholesterol VLDL Cholesterol HDL Cholesterol Heart Disease Risk Ratio Lipase Free T4 TSH 3rd Generation Urine Color Urine Appearance Urine pH Ur Specific [place] Urine Protein Urine Glucose (UA) Urine Ketones Urine Blood Urine Nitrate Urine Bilirubin Urine Urobilinogen Urine Leukocytes Urine RBC Urine WBC Urine Mucus Ur Culture Indicated? Urine Opiates Screen Ur Barbiturates Screen Ur Phencyclidine Scrn U Amphetamine/Methamph U Benzodiazepines Scrn U Cocaine Metab Screen U Cannabinoids Screen 12/07/16 12/07/16 12/07/16 04:02 04:02 04:02 WBC 7.4 RBC 5.64 H Hgb 15.6 Hct 46.9 MCV 83.2 L MCH 28 MCHC 33.3 RDW 14.1 Plt Count 211 MPV 10.4 Neut % (Auto) 68.3 Lymph % (Auto) 19.1 L [place] % (Auto) 9.9 Eos % (Auto) 2.0 Baso % (Auto) 0.4 Neut # (Auto) 5.0 Lymph # (Auto) 1.4 [place] # (Auto) 0.7 Eos # (Auto) 0.2 Baso # (Auto) 0.0 Immature Gran % 0.3 Nucleated RBC % 0.0 Immature Gran # 0.02 Nucleated RBCs # 0.00 INR PT Patient/Control Mix Circ Anticoag PTT Sodium 138 Potassium 4.1 Chloride 102 Carbon Dioxide 31 Anion Gap 9.1 BUN 12 Creatinine 1.30 GFR Calculation 72 BUN/Creatinine Ratio 9.00 Glucose 109 H Hemoglobin A1c Calculated Osmolality 275.7 Calcium 9.2 Total Bilirubin AST ALT Alkaline Phosphatase Total Creatine Kinase CK-MB (CK-2) Troponin I Total Protein Albumin Globulin Albumin/Globulin Ratio Triglycerides 110 Cholesterol 252 H LDL Cholesterol 181.0 VLDL Cholesterol 22.0 HDL Cholesterol 51 Heart Disease Risk Ratio 4.94 Lipase Free T4 1.12 TSH 3rd Generation 0.982 Urine Color Urine Appearance Urine pH Ur Specific [place] Urine Protein Urine Glucose (UA) Urine Ketones Urine Blood Urine Nitrate Urine Bilirubin Urine Urobilinogen Urine Leukocytes Urine RBC Urine WBC Urine Mucus Ur Culture Indicated? Urine Opiates Screen Ur Barbiturates Screen Ur Phencyclidine Scrn U Amphetamine/Methamph U Benzodiazepines Scrn U Cocaine Metab Screen U Cannabinoids Screen 12/07/16 04:02 WBC RBC Hgb Hct MCV MCH MCHC RDW Plt Count MPV Neut % (Auto) Lymph % (Auto) [place] % (Auto) Eos % (Auto) Baso % (Auto) Neut # (Auto) Lymph # (Auto) [place] # (Auto) Eos # (Auto) Baso # (Auto) Immature Gran % Nucleated RBC % Immature Gran # Nucleated RBCs # INR PT Patient/Control Mix Circ Anticoag PTT Sodium Potassium Chloride Carbon Dioxide Anion Gap BUN Creatinine GFR Calculation BUN/Creatinine Ratio Glucose Hemoglobin A1c 6.1 Calculated Osmolality Calcium Total Bilirubin AST ALT Alkaline Phosphatase Total Creatine Kinase CK-MB (CK-2) Troponin I Total Protein Albumin Globulin Albumin/Globulin Ratio Triglycerides Cholesterol LDL Cholesterol VLDL Cholesterol HDL Cholesterol Heart Disease Risk Ratio Lipase Free T4 TSH 3rd Generation Urine Color Urine Appearance Urine pH Ur Specific [place] Urine Protein Urine Glucose (UA) Urine Ketones Urine Blood Urine Nitrate Urine Bilirubin Urine Urobilinogen Urine Leukocytes Urine RBC Urine WBC Urine Mucus Ur Culture Indicated? Urine Opiates Screen Ur Barbiturates Screen Ur Phencyclidine Scrn U Amphetamine/Methamph U Benzodiazepines Scrn U Cocaine Metab Screen U Cannabinoids Screen
[2016-12-06 18:14] LABS: Troponin I Only < 0.015 NG/ML (0.00-0.045)
[2016-12-06] MEDS: SODIUM CHLORIDE 0.65% NASAL SPRAY 45 ML BOTTLE BOTH NARES SCH (20:32)
[2016-12-06] MEDS: ACETAMINOPHEN 325 MG TABLET PO PRN (20:34)
[2016-12-06] MEDS: AMOXICILLIN/CLAV 875 MG TABLET PO SCH (20:36)
[2016-12-06] MEDS: POTASSIUM CHLORIDE 20 MEQ TABLET PO SCH (20:36)
[2016-12-06 23:08] LABS: Troponin I Only < 0.015 NG/ML (0.00-0.045)
[2016-12-07 04:42] LABS: Basophils % 0.4 % (0.0-0.8); Eosinophils # 0.2 10*3/uL (0.0-0.87); Hematocrit 46.9 VOL% (42.0-52.0); Hemoglobin 15.6 GM/DL (14.0-18.0); Immature Granulocytes % 0.3 %; Immature Granulocytes Absolute 0.02 #; Lymphocytes # 1.4 10*3/uL (1.4-4.0); Lymphocytes % 19.1 % (21.2-54.2); Mean Corpuscular HGB Conc 33.3 GM/DL (32-36); Mean Corpuscular Hemoglobin 28 PG (27-34); Mean Corpuscular Volume 83.2 FL (87-102); Mean Platelet Volume 10.4 FL (9.6-12.0); Monocytes # 0.7 10*3/uL (0.11-0.8); Monocytes % 9.9 % (1.7-12.7); Neutrophils % 68.3 % (38.7-73.9); Platelet Count 211 T/CUMM (130-400); Red Blood Count 5.64 MC/CUMM (3.8-5.5); Red Cell Distribution Width 14.1 % (9.3-17.3); White Blood Count 7.4 T/CUMM (4-12)
[2016-12-07 05:10] LABS: Troponin I Only < 0.015 NG/ML (0.00-0.045)
[2016-12-07 05:16] LABS: Calcium 9.2 MG/DL (8.5-10.1); Osmolality,Calculated 275.7 MOS/KG (273-304); Potassium 4.1 MMOL/L (3.5-5.1); Risk Ratio 4.94; Thyroid Stimulating Hormone 0.982 uIU/ml (0.358-3.74)
[2016-12-07] MEDS: ACETAMINOPHEN 325 MG TABLET PO PRN ×2 (06:52→22:34)
--- NOTE | 2016-12-07 07:23 | EKG Report ---
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
--- NOTE | 2016-12-07 07:43 | EKG Report ---
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
[2016-12-07] MEDS: LOSARTAN 50 MG TABLET PO SCH (08:15)
[2016-12-07] MEDS: SODIUM CHLORIDE 0.65% NASAL SPRAY 45 ML BOTTLE BOTH NARES SCH ×4 (08:15→22:29)
[2016-12-07] MEDS: FLUTICASONE 50 MCG NASAL SPRAY 16 GM BOTTLE BOTH NARES SCH (08:15)
[2016-12-07] MEDS: amLODIPine 5 MG TABLET PO SCH (08:16)
[2016-12-07] MEDS: MELOXICAM 7.5 MG TABLET PO SCH (08:16)
[2016-12-07] MEDS: hydroCHLOROthiazide 25 MG TABLET PO SCH (08:16)
[2016-12-07] MEDS: ASPIRIN EC 81 MG TABLET PO SCH (08:16)
[2016-12-07] MEDS: ATENOLOL 25 MG TABLET PO SCH (08:16)
[2016-12-07] MEDS: PANTOPRAZOLE 40 MG TABLET PO SCH (08:16)
[2016-12-07] MEDS: AMOXICILLIN/CLAV 875 MG TABLET PO SCH ×2 (08:16→22:33)
[2016-12-07] MEDS ORDERED: PANTOPRAZOLE 40 MG TABLET PO SCH (09:00)
[2016-12-07] MEDS ORDERED: CETIRIZINE 10 MG TABLET PO SCH (09:00)
--- NOTE | 2016-12-07 09:01 | CT Report ---
Exam: CT sinus wo con Date: 12/07/2016 Reason: Right maxillary pain and tenderness Comparison: None Technique: Axial images of the paranasal sinuses were obtained without the use of contrast. Sagittal and coronal reformatted images were also acquired. Total DLP was 396.3 mGy*cm. Findings: Minimal circumferential mucosal thickening in the right maxillary sinus including the infundibulum. More pronounced mucosal thickening in the left maxillary sinus especially anteriorly with possible retention cyst/polyp. There is involvement of the left infundibulum. Minimal mucosal thickening/fluid in the ethmoid air cells extending into the floor of the frontal sinuses. Minimal mucosal thickening in the sphenoid sinuses. Deviation of the nasal septum to the left with left-sided septal spur and is chronic appearing deformity of the nasal bones. Left air-filled alda bullosa. Impression: Minimal sinusitis with findings most pronounced in the left maxillary sinus with additional possible retention cyst/polyp anteriorly. Chronic appearing deformity of the nasal bones with deviation of the nasal septum to the left. This CT exam was performed using one or more the following dose reduction techniques: Automatic exposure control, adjustment of the MA and/or KV according to patient size, or use of iterative reconstruction technique. PROCEDURE INTERPRETED AT [facility] DEPARTMENT OF RADIOLOGY Final Report Signed by: Dr. Becca Richter
--- NOTE | 2016-12-07 10:57 | Cardiology Progress Note ---
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 Funez is a 66 year old male with history of hypertension , asthma, hyperlipidemia, gout, GERD who presented to the emergency room with complaints of right-sided facial pain, jaw pain, and chest discomfort. We were consulted to see him. He had similar symptoms approximately 1 month ago where he was having significant amount of cough and then was seen by Dr. Josie Samano at the [facility] and given a Zithromax and he got better for just a few days. He now presents with same complaints but has chest pain that hurts anytime he coughs. He states that his pain occurs as sharp anytime he takes a deep breath and coughs. If he does not cough he does not have pain he has not had any exertional chest pain. He is also experienced some pain in the right maxillary area. His pain is noncardiac chest pain and appears to be musculoskeletal in etiology related to coughing from asthmatic bronchitis. He has had 3 sets of negative cardiac biomarkers along with no acute ischemic changes in his EKG. Although it was not reflected on his home medication list, he tells me that he does take atorvastatin 80 mg tablet, one half at bedtime every night. During hospitalization lipid panel revealed triglycerides of 110, cholesterol 252, LDL 181, HDL 51. He admits to having some nighttime leg aches. We will change him to Crestor and see how he tolerates. Overall he reports he is feeling considerably better today. Assessment/plan: 1. Chest pain - I suspect this is more related to his coughing from asthmatic bronchitis. He has had 3 sets of negative cardiac biomarkers along with no acute ischemic changes in his EKG. We will need to continue with risk modification including maintaining control of his hypertension and hyperlipidemia. 2. Possible sinusitis -He was started on on oral antibiotics, Flonase, and Zyrtec. Temperature max is only been 99. White blood cell count is normal at 10.3 but he had a little bit of a left shift on admission CBC. We will continue to monitor CBC and response to therapy. CT of the sinuses revealed minimal sinusitis with findings most pronounced in the left maxillary sinus with additional possible retention cyst/polyp anteriorly. He did have some chronic appearing deformity of the nasal bones with deviation of the nasal septum to the left. ENT has been consulted for facial abscess. 3. Hypertension -blood pressure has been moderately elevated since admission although he has been in considerable pain with the right side of his face hurting. It is better controlled now. We will continue to monitor and adjust medications accordingly. 4. Hyperlipidemia - During hospitalization lipid panel revealed triglycerides of 110, cholesterol 252, LDL 181, HDL 51. He admits to having some nighttime leg aches. We will change him to Crestor and see how he tolerates. 5. Gout -continue home medications. Denies any recent flareups of gout. 6. GERD -continue PPI during hospitalization. Exam (Progress Note) - Constitutional Vitals: Period Temp Pulse Resp BP Sys/Hopkins Pulse Ox Last 24 Hr 97.2 F-100.3 F 55-76 14-21 127-178/76-122 95-100 Exam: General appearance: Pleasant and cooperative. Normal weight, no acute distress. - Head Head exam: Present: normal inspection, normocephalic, atraumatic, right maxillary pain and tenderness to palpation. Absent: hematoma, laceration - Eye Eye exam: Present: EOMI. Absent: conjunctival injection, nystagmus, periorbital swelling, scleral icterus, laceration to eyelids Pupils: Present: PERRL. Absent: constricted, dilated, fixed, irregular, unequal - ENT ENT exam: Present: normal exam, normal external ear exam - Neck Neck exam: Present: normal inspection. Absent: lymphadenopathy, meningismus, tenderness, thyromegaly - Respiratory Respiratory exam: Present: clear to auscultation bilaterally. Absent: accessory muscle use, chest wall tenderness - Cardiovascular Cardiovascular exam: Present: regular rate and rhythm. Absent: carotid bruit, gallop, JVD, rubs, murmur - GI/Abdominal GI/Abdominal exam: Present: normal bowel sounds, soft. Absent: distended, firm , guarding, hernia, mass, tenderness, rebound. - Extremities Exam Extremities exam: Present: normal inspection, normal capillary refill. Upper extremity pulses 2+. Lower extremity pulses 2+. Absent: calf tenderness, edema -Musculoskeletal Exam Musculoskeletal: Present: No Fluid Collection, No Pain, Normal Range of Motion - Back Exam Back exam: Present: normal inspection. Absent: muscle spasm, vertebral tenderness - Neurological Exam Neurological exam: Present: alert, oriented X3, grossly intact without resting or essential tremor - Psychiatric Psychiatric exam: Present: normal affect, normal mood - Skin Skin exam: Present: normal color, warm, dry, intact. Absent: cyanosis, diaphoretic, rash, urticaria Result/EKG - Labs CBC & BMP: 12/07/16 04:02 12/07/16 04:02 Lab Results: I have reviewed the past 24 hour labs Labs: Laboratory Results - last 24 hr 12/06/16 12/06/16 12/06/16 12:59 12:59 12:59 WBC RBC Hgb Hct MCV MCH MCHC RDW Plt Count MPV Neut % (Auto) Lymph % (Auto) [place] % (Auto) Eos % (Auto) Baso % (Auto) Neut # (Auto) Lymph # (Auto) [place] # (Auto) Eos # (Auto) Baso # (Auto) Immature Gran % Nucleated RBC % Immature Gran # Nucleated RBCs # INR 1.0 PT Patient/Control Mix 10.7 Circ Anticoag PTT 29.9 Sodium 139 Potassium 3.9 Chloride 102 Carbon Dioxide 30 Anion Gap 10.9 BUN 11 Creatinine 1.20 GFR Calculation 79 BUN/Creatinine Ratio 9.00 Glucose 110 H Hemoglobin A1c Calculated Osmolality 276.5 Calcium 9.1 Total Bilirubin 0.60 AST 16 ALT 26 Alkaline Phosphatase 67 Total Creatine Kinase CK-MB (CK-2) Troponin I < 0.015 Total Protein 7.1 Albumin 3.6 Globulin 3.5 Albumin/Globulin Ratio 1.0 L Triglycerides Cholesterol LDL Cholesterol VLDL Cholesterol HDL Cholesterol Heart Disease Risk Ratio Lipase 68.0 L Free T4 TSH 3rd Generation Urine Color Urine Appearance Urine pH Ur Specific [place] Urine Protein Urine Glucose (UA) Urine Ketones Urine Blood Urine Nitrate Urine Bilirubin Urine Urobilinogen Urine Leukocytes Urine RBC Urine WBC Urine Mucus Ur Culture Indicated? Urine Opiates Screen Ur Barbiturates Screen Ur Phencyclidine Scrn U Amphetamine/Methamph U Benzodiazepines Scrn U Cocaine Metab Screen U Cannabinoids Screen 12/06/16 12/06/16 12/06/16 12:59 13:21 13:21 WBC 10.3 RBC 5.88 H Hgb 16.5 Hct 48.7 MCV 82.8 L MCH 28 MCHC 33.9 RDW 14.0 Plt Count 215 MPV 10.6 Neut % (Auto) 80.6 H Lymph % (Auto) 10.8 L [place] % (Auto) 6.9 Eos % (Auto) 1.2 Baso % (Auto) 0.3 Neut # (Auto) 8.3 H Lymph # (Auto) 1.1 L [place] # (Auto) 0.7 Eos # (Auto) 0.1 Baso # (Auto) 0.0 Immature Gran % 0.2 Nucleated RBC % 0.0 Immature Gran # 0.02 Nucleated RBCs # 0.00 INR PT Patient/Control Mix Circ Anticoag PTT Sodium Potassium Chloride Carbon Dioxide Anion Gap BUN Creatinine GFR Calculation BUN/Creatinine Ratio Glucose Hemoglobin A1c Calculated Osmolality Calcium Total Bilirubin AST ALT Alkaline Phosphatase Total Creatine Kinase CK-MB (CK-2) Troponin I Total Protein Albumin Globulin Albumin/Globulin Ratio Triglycerides Cholesterol LDL Cholesterol VLDL Cholesterol HDL Cholesterol Heart Disease Risk Ratio Lipase Free T4 TSH 3rd Generation Urine Color Straw Urine Appearance Clear Urine pH 7.0 Ur Specific [place] 1.009 Urine Protein Negative Urine Glucose (UA) Negative Urine Ketones Negative Urine Blood Negative Urine Nitrate Negative Urine Bilirubin Negative Urine Urobilinogen < 2.0 H Urine Leukocytes Negative Urine RBC 1 Urine WBC <1 Urine Mucus Occasional Ur Culture Indicated? Not indicated Urine Opiates Screen Negative Ur Barbiturates Screen Negative Ur Phencyclidine Scrn Negative U Amphetamine/Methamph Negative U Benzodiazepines Scrn Negative U Cocaine Metab Screen Negative U Cannabinoids Screen Negative 12/06/16 12/06/16 12/07/16 16:44 22:06 04:02 WBC RBC Hgb Hct MCV MCH MCHC RDW Plt Count MPV Neut % (Auto) Lymph % (Auto) [place] % (Auto) Eos % (Auto) Baso % (Auto) Neut # (Auto) Lymph # (Auto) [place] # (Auto) Eos # (Auto) Baso # (Auto) Immature Gran % Nucleated RBC % Immature Gran # Nucleated RBCs # INR PT Patient/Control Mix Circ Anticoag PTT Sodium Potassium Chloride Carbon Dioxide Anion Gap BUN Creatinine GFR Calculation BUN/Creatinine Ratio Glucose Hemoglobin A1c Calculated Osmolality Calcium Total Bilirubin AST ALT Alkaline Phosphatase Total Creatine Kinase 72 49 D 43 CK-MB (CK-2) 1.4 < 1.0 < 1.0 Troponin I < 0.015 < 0.015 < 0.015 Total Protein Albumin Globulin Albumin/Globulin Ratio Triglycerides Cholesterol LDL Cholesterol VLDL Cholesterol HDL Cholesterol Heart Disease Risk Ratio Lipase Free T4 TSH 3rd Generation Urine Color Urine Appearance Urine pH Ur Specific [place] Urine Protein Urine Glucose (UA) Urine Ketones Urine Blood Urine Nitrate Urine Bilirubin Urine Urobilinogen Urine Leukocytes Urine RBC Urine WBC Urine Mucus Ur Culture Indicated? Urine Opiates Screen Ur Barbiturates Screen Ur Phencyclidine Scrn U Amphetamine/Methamph U Benzodiazepines Scrn U Cocaine Metab Screen U Cannabinoids Screen 12/07/16 12/07/16 12/07/16 04:02 04:02 04:02 WBC 7.4 RBC 5.64 H Hgb 15.6 Hct 46.9 MCV 83.2 L MCH 28 MCHC 33.3 RDW 14.1 Plt Count 211 MPV 10.4 Neut % (Auto) 68.3 Lymph % (Auto) 19.1 L [place] % (Auto) 9.9 Eos % (Auto) 2.0 Baso % (Auto) 0.4 Neut # (Auto) 5.0 Lymph # (Auto) 1.4 [place] # (Auto) 0.7 Eos # (Auto) 0.2 Baso # (Auto) 0.0 Immature Gran % 0.3 Nucleated RBC % 0.0 Immature Gran # 0.02 Nucleated RBCs # 0.00 INR PT Patient/Control Mix Circ Anticoag PTT Sodium 138 Potassium 4.1 Chloride 102 Carbon Dioxide 31 Anion Gap 9.1 BUN 12 Creatinine 1.30 GFR Calculation 72 BUN/Creatinine Ratio 9.00 Glucose 109 H Hemoglobin A1c Calculated Osmolality 275.7 Calcium 9.2 Total Bilirubin AST ALT Alkaline Phosphatase Total Creatine Kinase CK-MB (CK-2) Troponin I Total Protein Albumin Globulin Albumin/Globulin Ratio Triglycerides 110 Cholesterol 252 H LDL Cholesterol 181.0 VLDL Cholesterol 22.0 HDL Cholesterol 51 Heart Disease Risk Ratio 4.94 Lipase Free T4 1.12 TSH 3rd Generation 0.982 Urine Color Urine Appearance Urine pH Ur Specific [place] Urine Protein Urine Glucose (UA) Urine Ketones Urine Blood Urine Nitrate Urine Bilirubin Urine Urobilinogen Urine Leukocytes Urine RBC Urine WBC Urine Mucus Ur Culture Indicated? Urine Opiates Screen Ur Barbiturates Screen Ur Phencyclidine Scrn U Amphetamine/Methamph U Benzodiazepines Scrn U Cocaine Metab Screen U Cannabinoids Screen 12/07/16 04:02 WBC RBC Hgb Hct MCV MCH MCHC RDW Plt Count MPV Neut % (Auto) Lymph % (Auto) [place] % (Auto) Eos % (Auto) Baso % (Auto) Neut # (Auto) Lymph # (Auto) [place] # (Auto) Eos # (Auto) Baso # (Auto) Immature Gran % Nucleated RBC % Immature Gran # Nucleated RBCs # INR PT Patient/Control Mix Circ Anticoag PTT Sodium Potassium Chloride Carbon Dioxide Anion Gap BUN Creatinine GFR Calculation BUN/Creatinine Ratio Glucose Hemoglobin A1c 6.1 Calculated Osmolality Calcium Total Bilirubin AST ALT Alkaline Phosphatase Total Creatine Kinase CK-MB (CK-2) Troponin I Total Protein Albumin Globulin Albumin/Globulin Ratio Triglycerides Cholesterol LDL Cholesterol VLDL Cholesterol HDL Cholesterol Heart Disease Risk Ratio Lipase Free T4 TSH 3rd Generation Urine Color Urine Appearance Urine pH Ur Specific [place] Urine Protein Urine Glucose (UA) Urine Ketones Urine Blood Urine Nitrate Urine Bilirubin Urine Urobilinogen Urine Leukocytes Urine RBC Urine WBC Urine Mucus Ur Culture Indicated? Urine Opiates Screen Ur Barbiturates Screen Ur Phencyclidine Scrn U Amphetamine/Methamph U Benzodiazepines Scrn U Cocaine Metab Screen U Cannabinoids Screen - EKG EKG results: interpreted by me, sinus rhythm
--- NOTE | 2016-12-07 12:36 | Consultation ---
Assessment and Plan (1) Odontogenic infection of jaw Status: Acute Assessment and plan: consult oral surgery for management of right maxillary odontogenic abscess Current Visit: Yes History of Present Illness - Data of Consult Patient: new to practice Consult date: 12/07/16 Requesting Physician: Gabriela Hi - Consult Narrative Reason for consult: "Facial abscess" History of present illness: Mr. Funez is a 66 year old male admitted with chest pain, right facial pain. reviewed notes, interviewed patient CC: Gabriela Hi MD - Home Medications and Allergies Home Medications: Home Medications Medication Instructions Recorded Confirmed Type Acetaminophen Tab [Tylenol Tab] 650 mg PO Q4H PRN tablet 12/06/16 Rx Amoxicillin/Clav Tab [Augmentin 875 mg PO BID tablet 12/06/16 Rx Tab] Aspirin EC Tab 81 mg PO QAM 12/06/16 12/06/16 History Atenolol 25 mg PO QAM 12/06/16 12/06/16 History Fluticasone 50 Mcg Nasal [place] 2 spray BOTH NARES DAILY spray 12/06/16 Rx [Flonase Nasal [place]] Meloxicam 7.5 mg PO QAM 12/06/16 12/06/16 History Nitroglycerin Sl Tab [Nitrostat] 0.4 mg SL Q5M PRN tablet 12/06/16 Rx Omeprazole 20 mg PO QAM 12/06/16 12/06/16 History Potassium Chloride Cap/Tab [K Dur] 20 meq PO BEDTIME 12/06/16 12/06/16 History Sodium Chloride 0.65% Nasal Sp 2 spray BOTH NARES QID bottle 12/06/16 Rx [[place] Nasal [place]] hydroCHLOROthiazide 25 mg PO QAM 12/06/16 12/06/16 History [Hydrochlorothiazide] Atorvastatin [Lipitor] 40 mg PO BEDTIME 12/07/16 12/07/16 History Allergies/Adverse Reactions: Allergies Allergy/AdvReac Type Severity Reaction Status Date / Time lisinopril Allergy ANAPHYLAXIS Verified 12/06/16 12:34 Medical,Surgical,& Family Hx - Medical History Cardio: History of: Hypertension No history of: CAD Endocrine: History of: Dyslipidemia Gastrointestinal: History of: GERD - Family History Family History: Reports;: Family Cancer (father) - Social History Smoking Status: Never smoker Frequency of Alcohol Use: None Type of Drug Use: None Exam - Constitutional Vitals: Period Temp Pulse Resp BP Sys/Hopkins Pulse Ox Last 24 Hr 97.2 F-100.3 F 55-76 14-21 127-178/76-122 95-100 - ENT ENT exam: Present: other (pustule above right maxillary canine on aveolus) Results - Labs CBC & BMP: 12/07/16 04:02 12/07/16 04:02 - Diagnostic Findings Procedure: CT: image reviewed by me (odontogentic abscess)
--- NOTE | 2016-12-07 16:10 | Hospitalist Progress Note ---
Hospitalist: Subjective Interval history: No further chest pain or palpitations. Facial pain is better. Tolerating po. Has seen ENT and has recommended oral surgery. Exam - Constitutional Vitals: Period Temp Pulse Resp BP Sys/Hopkins Pulse Ox Last 24 Hr 97.2 F-100.3 F 55-76 16-20 137-178/79-101 95-99 Exam: General: Awake alert and oriented 4 sitting in hospital bed comfortably eating in no acute distress HEENT exam revealed: Pupils are equal and reactive to light. Extraocular muscles are intact. Sclerae clear. Conjunctive are pink. Nares are patent with no discharge or epistaxis no but he has an obvious deformity to his right paranasal space and decreased tenderness to palpation with tenderness over the right maxillary sinus. Oropharynx is clear. No lesions or thrush noted. Neck is supple. No lymphadenopathy or thyromegaly appreciated. No JVD. Cardiovascular: Regular rate and rhythm. Normal S1-S2. No obvious murmurs rubs or gallops Lungs: Clear to auscultation bilaterally with good aeration nonlabored breathing noted Abdomen: Soft nontender nondistended positive bowel sounds no organomegaly or masses appreciated Extremity exam: Patient is warm and well-perfused. No clubbing cyanosis or edema Results - Labs CBC & BMP: 12/07/16 04:02 12/07/16 04:02 - Impressions #1 Atypical chest pain likely due to acute bronchitis though patient does have a risk factors for ACS -Cont bronchodilators as needed. No ACS suspected as FEDE negative. DC telemetry. TSH. cardiology has been consulted. Await recommendations #2 Suspect acute sinusitis -Cont decongestants and Augmentin. ENT has seen and feels pt needs oral surgery for dental abscess. Will consult. #3 GERD -Continue PPI #4 essential hypertension -Cont home meds #5 Dyslipidemia -Continue but increase atorvastatin 80mg po hs per cards recs. #6 Remote history of tobacco use -Recommend continued smoking cessation Discussed with nurse and patient. All questions answered. DC pending eval
[2016-12-07] MEDS ORDERED: ROSUVASTATIN 20 MG TABLET PO SCH (21:00)
[2016-12-07] MEDS: POTASSIUM CHLORIDE 20 MEQ TABLET PO SCH (22:34)
--- NOTE | 2016-12-08 07:46 | Discharge Summary ---
Hospital Course - Hospital Course Hospital Course: Pt is a 66 year old male with a history of GERD, hypertension, dyslipidemia and asthma who presented to the hospital with 2 days of nasal congestion and cough and developed chest pain today. Patient reports 2 days ago he has. Some hay out over his yard and soon thereafter started having nasal congestion and described a tightness in his chest rated 5 out of 10 with a pressure sensation over the right side of his chest that started after a coughing fit. He denies any radiation. He denies any jaw pain. He reports that he has some pressure next to his nose and his right upper cheek and states that the chest tightness was associated with shortness of breath and nausea. He denies any runny nose. He denies any abdominal pain. His last bowel movement was yesterday. He denies any melena or bright red blood per rectum. He described his symptoms to his and she was concerned so she decided to bring him to the emergency department for further evaluation and treatment. Patient was found to have atypical chest pain likely due to acute bronchitis though patient does have a risk factors for ACS. Patient was started on bronchodilators as needed for possible bronchospasms. Serial cardiac markers were negative. TSH was within normal limits. Cardiology was consulted and recommended no additional cardiac workup. CT scan of the sinuses showed sinusitis and ENT was consulted for possible abscess. ENT recommended an oral surgery consultation. Patient reported that he wanted to follow-up with his dentist/oral surgeon upon discharge. He was started on decongestants and Augmentin and symptoms significantly improved. For GERD, patient was continued on his PPI. For dyslipidemia, cardiology recommended changing from atorvastatin 40 mg once a day to Crestor 20 mg daily. Once patient symptoms were significantly improved, he was discharged home for ongoing care. - Time spent with patient Time with patient DS: Greater than 30 minutes (35 minutes) Diagnosis - Discharge Diagnosis (1) Chest pain Status: Resolved (2) Essential hypertension Status: Chronic (3) Odontogenic infection of jaw Status: Acute (4) Sinusitis Status: Acute (5) GERD (gastroesophageal reflux disease) Status: Chronic (6) Gout Status: Chronic (7) Hyperlipidemia Status: Chronic Specialty Discharge - Follow Up or Referrals Follow up with: oral surgeon, ELLIS [Other] - 12/25/16 1:00 pm (pt to schedule) Josie Samano M.D. [Physician] - 2 Weeks Discharge Plan - Discharge Data Disposition: Disch To Home/Self Care Condition at Discharge: Stable Discharge Diet: advance to your usual diet Activity: resume usual activities as tolerated Contact your physician if you experience:: fever over 101, Difficulty voiding, Redness or swelling, Nausea/Vomiting, Shortness of breath, Bleeding, pain uncontrolled by pain medications - Discharge Medications New Acetaminophen Tab [Tylenol Tab] 650 mg PO Q4H PRN tablet PRN Reason: Fever, Headache, Mild Pain Fluticasone 50 Mcg Nasal [place] [Flonase Nasal [place]] 2 spray BOTH NARES DAILY spray Sodium Chloride 0.65% Nasal Sp [[place] Nasal [place]] 2 spray BOTH NARES QID bottle Rosuvastatin [Crestor] 20 mg PO BEDTIME #30 tablet amLODIPine [Norvasc] 5 mg PO DAILY #30 tablet Amoxicillin/Clav Tab [Augmentin Tab] 875 mg PO BID tablet HYDROcodone/ACETAMIN 5-325 [[place] 5-325] 1 tablet PO Q6H PRN #20 tablet PRN Reason: Pain Moderate (4-7) Losartan [Cozaar] 50 mg PO DAILY #30 tablet Continue Omeprazole 20 mg PO QAM Meloxicam 7.5 mg PO QAM Potassium Chloride Cap/Tab [K Dur] 20 meq PO BEDTIME Atenolol 25 mg PO QAM Aspirin EC Tab 81 mg PO QAM hydroCHLOROthiazide [Hydrochlorothiazide] 25 mg PO QAM Discontinued Atorvastatin [Lipitor] 40 mg PO BEDTIME - Follow Up or Referral Follow Up: oral surgeon, ELLIS [Other] - 12/25/16 1:00 pm (pt to schedule) Josie Samano M.D. [Physician] - 2 Weeks - Forms/Instructions Exam - Constitutional Vitals: Period Temp Pulse Resp BP Sys/Hopkins Pulse Ox Last 24 Hr 97.4 F-99.0 F 56-72 16-20 122-169/71-89 96-98 Exam: See progress note from 622 his physical exam is unchanged DS: Provider Date of admission: 12/06/16 14:31 Primary care physician: . No PCP Attending physician on admission: Gabriela Hi MD Consults: 12/06/16 15:08 Consult to Physician [CONS] Routine Comment: Consulting Provider: Meryl Tristan 12/07/16 09:10 Consult to Physician [CONS] Routine Comment: facial abscess Consulting Provider: Don Nelson Consult to Specialist Group: ENT When should Consulting Provider be notified: Now Person Notified: FELIPE Date Notified: 12/07/16 Time Notified: 09:25 12/07/16 16:07 Consult to Physician [CONS] Routine Comment: dental abscess Consulting Provider: Al Coon Consult to Specialist Group: Oral Surgery When should Consulting Provider be notified: Now Person Notified: SPOKE WITH OFFICE Date Notified: 12/07/16 Time Notified: 16:30 Discharging clinician: Gabriela Hi MD
[2016-12-08 08:06] VITALS: BP 139/75
[2016-12-08] MEDS: hydroCHLOROthiazide 25 MG TABLET PO SCH (09:52)
[2016-12-08] MEDS: ATENOLOL 25 MG TABLET PO SCH (09:52)
[2016-12-08] MEDS: LOSARTAN 50 MG TABLET PO SCH (09:52)
[2016-12-08] MEDS: amLODIPine 5 MG TABLET PO SCH (09:52)
[2016-12-08] MEDS: PANTOPRAZOLE 40 MG TABLET PO SCH (09:52)
[2016-12-08] MEDS: MELOXICAM 7.5 MG TABLET PO SCH (09:52)
[2016-12-08] MEDS: FLUTICASONE 50 MCG NASAL SPRAY 16 GM BOTTLE BOTH NARES SCH (09:53)
[2016-12-08] MEDS: ASPIRIN EC 81 MG TABLET PO SCH (09:53)
[2016-12-08] MEDS: AMOXICILLIN/CLAV 875 MG TABLET PO SCH (09:53)
[2016-12-08] MEDS: SODIUM CHLORIDE 0.65% NASAL SPRAY 45 ML BOTTLE BOTH NARES SCH (09:54)
== END 2016-12-08 10:52 | disposition home or self-care (01) ==
LOC: N.EDINP 12:16 → N.ED 12:16 → N.TELEN 15:20
PROVIDERS: ADMIT Pediatrics; ATTEND Pediatrics